=== PATIENT | female | born 1995 | race Caucasian/White ===

== ENCOUNTER 2020-07-17 23:57 | Emergency (ER) | payer BC, SELFPAY ==
--- NOTE | ~2020-07-17 | XR_ITS ---
EXAMINATION: XR chest 2V EXAM DATE: 07/18/2020 00:53 INDICATION: Chest pain, left-sided burning sensation. TECHNIQUE: Frontal and lateral projections of the chest obtained and reviewed. Comparison is made to prior examination from 11/18/2013. FINDINGS: The lungs are clear. There are no pleural effusions. The cardiomediastinal silhouette is within normal limits. There is no pneumothorax suspected. The bones and soft tissues are unremarkab le. IMPRESSION: Normal chest x-ray exam. Reviewed, dictated and finalized at location A. 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
--- NOTE | 2020-07-18 00:13 | ECG_ITS ---
Measurements Intervals [place] Rate: 83 P: -25 MD: 136 QRS: 47 QRSD: 88 T: 23 QT: 372 QTc: 439 Interpretive Statements SINUS RHYTHM INCOMPLETE RIGHT BUNDLE BRANCH BLOCK BORDERLINE ECG Electronically Signed On 07-18-2020 11:13:25 ADVERTISING CONSULTANT by Shayan Nolen D.O.
--- NOTE | 2020-07-18 00:14 | ED.CHESTPAIN ---
HPI - Chest Pain General Chief Complaint: Chest Pain Stated Complaint: sharp chest pain under left breast, dizziness Time Seen by Provider: 07/18/20 00:01 Source: RN notes reviewed History of Present Illness HPI narrative: Patient presents to emergency department from home for chest pain. Patient states that for the past several hours she has been having left-sided chest pain that lasted approximately 30 seconds and resolves and comes every 30 seconds described as sharp and stabbing the pain does not radiate she is she has been having intermittent chest pain over the past 1 month. She denies any fevers or chills cough shortness of breath abdominal pain nausea vomiting or any other symptoms she states she is being currently worked up by her PCP for episodes of getting dizzy upon standing and has been having outpatient testing Related Data Allergies Allergy/AdvReac Type Severity Reaction Status Date / Time No Known Drug Allergies Allergy Unknown Verified 07/09/15 10:46 Review of Systems Review of Systems: Narrative: Gen.: Denies fevers or chills ENT: Denies congestion Respiratory: Denies shortness of breath or cough CV: See HPI GI: Denies abdominal pain nausea, emesis or diarrhea Musculoskeletal: Denies back pain or muscle pain Neuro: Denies numbness, tingling, weakness or focal weakness Skin: Denies rash Except as documented, all other systems reviewed and negative PMFSH Past Medical History Medical History (Updated 07/18/20 @ 04:16 by Corky Deleon DO) Patient denies significant medical history Social History Social History (Updated 07/18/20 @ 00:15 by Corky Deleon DO) Tobacco type: e-cigarettes/vaping Exam Narrative: Exam Narrative: APPEARANCE: No acute distress, nontoxic, resting in bed EYES: EOMI HEENT: Normocephalic, atraumatic, OMM RESPIRATORY: No respiratory distress Clear to auscultation bilaterally with no rhonchi wheezing or rales. CARDIOVASCULAR: Regular rate and rhythm without murmurs rubs or gallops. ABDOMINAL: Soft, tender palpation epigastric region no tenderness right upper quadrant, left upper quadrant right lower quadrant left lower quadrant no rebound or guarding nondistended, no rebound or guarding MUSCULOSKELETAl: Moves all extremities. No clubbing, cyanosis or edema. NEURO: Awake and alert. Following commands, speech normal, no focal deficits SKIN:: Warm, dry. No rashes lesions or abrasions PSYCHIATRIC: Normal affect/mood, Course Course Emergency Course: Patient states pain is improved with medication Discussed with patient results of workup and diagnosis. Discussed need for follow-up with primary care, proper use of medication, and reasons to return to the emergency department. Patient understands and agrees to current treatment plan Vital Signs Vital signs: Vital Signs Temperature 98.4 F 07/18/20 00:45 Pulse Rate 73 07/18/20 00:45 Respiratory Rate 18 07/18/20 00:45 Pulse Oximetry 97 07/18/20 00:45 Temperature 98.4 F 07/18/20 00:45 Pulse Rate 69 07/18/20 03:57 Respiratory Rate 18 07/18/20 03:57 Blood Pressure 111/69 07/18/20 03:57 Pulse Oximetry 99 07/18/20 03:57 MDM - Chest Pain MDM Narrative Medical decision making narrative: Patient's EKGs and labs are without significant high risk changes. Cardiac risk factors reviewed. Patient is felt likely low risk for ACS and reasonable for further risk stratification testing as an outpatient. Pain was not sudden or maximal in onset without tearing or ripping quality. No other signs of symptoms suggest aortic dissection. A low-risk Wells criteria is noted, PE is felt to be unlikely. No pneumonia seen on evaluation today. Patient is felt to be a reasonable candidate for continued evaluation as an outpatient Lab Data Result diagrams: 07/18/20 00:37 07/18/20 00:37 Labs: Lab Results 07/18/20 07/18/20 07/18/20 Range/Units 00:37 00:37 00:37 WBC 6.8 (4.5-10.0) K/mm3 R
[2020-07-18 00:45] VITALS: PULSE 73; RESP 18; TEMP 36.9; O2SAT 97
[2020-07-18 00:45] LABS: Basophils Percent Auto 0.4 % (0.2-1.2); Eosinophils Absolute Auto 0.5 K/mm3 (0-0.3); Eosinophils Percent Auto 6.8 % (0-4.4); Hematocrit 41.4 % (37.0-47.0); Hemoglobin 14.3 g/dL (12.0-15.0); Immature Granulocyte Absolute 0.02 K/mm3 (0.00-0.031); Immature Granulocyte Percent A 0.3 % (0-0.5); Lymphocytes Absolute Auto 2.47 K/mm3 (0.9-3.2); Lymphocytes Percent Auto 36.5 % (18.3-44.2); Mean Corpuscular HGB Conc 34.5 g/dl (32-36); Mean Corpuscular Hemoglobin 32.4 pg (26-34); Mean Corpuscular Volume 93.9 fl (80-100); Mean Platelet Volume 9.6 fl (7.4-10.4); Monocytes Absolute Auto 0.7 K/mm3 (0.1-0.6); Monocytes Percent Auto 9.9 % (2.6-8.5); Neutrophils Absolute Auto 3.1 K/mm3 (1.3-6.7); Neutrophils Percent Auto 46.1 % (45.5-73.1); Platelet Count Result 249 k/mm3 (150-375); Red Blood Count 4.41 M/mm3 (4.2-5.4); Red Cell Distribution Width 12.3 % (11.5-14.5); White Blood Count 6.8 K/mm3 (4.5-10.0)
[2020-07-18 00:55] VITALS: BP 138/77; PULSE 83; RESP 14; O2SAT 100
[2020-07-18 00:55] LABS: INR 1.1
[2020-07-18 00:56] LABS: Partial Thromboplastin Time 24.7 SECONDS (22.3-36.8)
[2020-07-18 00:58] LABS: Alanine Aminotransferase 31 U/L (4-35); Albumin Level 4.7 g/dL (3.5-5.1); Alkaline Phosphatase 62 U/L (38-126); Anion Gap 8 mmol/L (8-16); Aspartate Amino Transferase 29 U/L (14-36); Bilirubin,Total 0.6 mg/dL (0.2-1.3); Blood Urea Nitrogen 14 mg/dL (7-17); Calcium 9.5 mg/dL (8.4-10.2); Carbon Dioxide 28 mmol/L (22-30); Chloride 102 mmol/L (98-107); D Dimer 0.29 ug/mL (<0.48); Estimated CRCL calculation 77 ml/min; Estimated Glomerular Filt Rate > 60; Glucose 107 mg/dL (65-105); Lipase 124 U/L (23-300); Potassium 4.3 mmol/L (3.4-5.0); Sodium 138 mmol/L (137-145)
[2020-07-18 01:09] LABS: Troponin I < 0.012 ng/mL (0.000-0.034)
[2020-07-18] MEDS: KETOROLAC 30 MG/ML VIAL (*BKC) IV PUSH (01:41)
[2020-07-18] MEDS: SODIUM CHLORIDE 0.9% IV 1,000 ML 999 ML IV CONT (01:41)
[2020-07-18 02:43] VITALS: BP 109/61; PULSE 64; RESP 18; O2SAT 98
[2020-07-18 03:57] VITALS: BP 111/69; PULSE 69; RESP 18; O2SAT 99
[2020-07-18 04:05] LABS: Troponin I < 0.012 ng/mL (0.000-0.034)
[2020-07-18 05:21] VITALS: BP 107/64; PULSE 67; RESP 18; O2SAT 99
== END 2020-07-18 05:23 | disposition home or self-care (01) ==
PROVIDERS: Emergency Provider Emergency Medicine; PCP Internal Medicine
DX: R07.9 Chest pain, unspecified (principal); F17.290 Nicotine dependence, other tobacco product, uncomplicated; I45.10 Unspecified right bundle-branch block
CPT/HCPCS: 36415; 71046; 80053; 81025; 83690; 84484; 85025; 85380; 85610; 85730; 93005; 96361; 96374; 99284; A9270; J1885; J7030

== ENCOUNTER 2022-08-11 15:42 | Outpatient (CLI) | payer BC, SELFPAY ==
--- NOTE | ~2022-08-11 | MR_ITS ---
EXAMINATION: MR lumbar spine wo con DATE: 08/11/2022 16:53 INDICATION: Lumbar pain. TECHNIQUE: Magnetic resonance imaging (MRI) of the lumbar spine was performed without intravenous con trast. Sequences included sagittal T2-weighted FSE, sagittal T2-weighted FS FSE, sagittal T1-weighted FSE, and axial T2-weighted FSE. COMPARISON: None FINDINGS: There is 3 mm levocurvature of lumbar spine. Vertebral body heights and intervertebral disc heights are normal. The distal spinal cord signal intensity is normal. The conus medullaris is at T1 2. The following disc levels are specifically discussed: L1-L2: The disc does not extend beyond the endplate margin. There is mild bilateral facet joint osteo arthritis. There is no neural foraminal stenosis. There is no central canal stenosis. L2-L3: The disc does not extend beyond the endplate margin. There is no facet joint osteoarthritis. T here is no neural foraminal stenosis. There is no central canal stenosis. L3-L4: The disc does not extend beyond the endplate margin. There is no facet joint osteoarthritis. T here is no neural foraminal stenosis. There is no central canal stenosis. L4-L5: The disc is bulging. There is mild left facet joint osteoarthritis. There is mild bilateral ne ural foraminal stenosis. There is mild central canal stenosis. L5-S1: The disc does not extend beyond the endplate margin. There is mild bilateral facet joint osteo arthritis. There is no neural foraminal stenosis. There is no central canal stenosis. IMPRESSION: 1. Mild lumbar spondylosis. Reviewed, dictated and finalized at location A. OPERATOR IMPRESSION: 1. Mild lumbar spondylosis.
== END 2022-08-11 15:43 ==
PROVIDERS: PCP Nurse Practitioner; Visit Provider Nurse Practitioner
DX: M47.896 Other spondylosis, lumbar region (principal)
CPT/HCPCS: 72148